=== PATIENT | male | born 1955 | race Two or more races ===

== ENCOUNTER → 2020-06-16 | Outpatient (CLI) | payer BC, MEDICARE ==
[~2020-06-16] MED LIST: GADOBENATE DIMEGLUMINE 529 MG/ML 10ML IV ONE
== END | disposition home or self-care (01) ==
LOC: NM 07:32
PROVIDERS: ATTEND Urology
DX: C61 Malignant neoplasm of prostate (principal); I77.810 Thoracic aortic ectasia
CPT/HCPCS: 71046; 72197; 78306; A9503; A9577

== ENCOUNTER 2021-11-08 18:42 | Emergency (ER) | payer BC, OTHER ==
[~2021-11-08] VITALS: Ht 177.8 cm; Wt 82.0 kg
[2021-11-08 20:50] VITALS: BP 158/93
[2021-11-08] MEDS ORDERED: NA PHOS,M-B/NA PHOS,DI-BA ENEMA 118ML PR ONE (21:00)
[2021-11-08 21:19] LABS: CLARITY URINE CLEAR (CLEAR); COLOR URINE YELLOW (YELLOW); KETONES URINE NEGATIVE (NEGATIVE); LEUKOCYTE ESTERASE URINE NEGATIVE (NEGATIVE); NITRITE URINE NEGATIVE (NEGATIVE); OCCULT BLOOD URINE 1+ (NEGATIVE); PH URINE 5.5 (4.5-8.0); PROTEIN URINE 1+ (NEGATIVE); SPECIFIC GRAVITY URINE 1.018 (1.005-1.030); UROBILINOGEN URINE 0.2 E.U./dL (0.2-1.0)
== END 2021-11-08 21:41 | disposition left against medical advice (07) ==
LOC: ER 18:42
DX: K59.00 Constipation, unspecified (principal); R30.0 Dysuria
CPT/HCPCS: 81003; 99283

== ENCOUNTER 2021-12-04 11:29 | Emergency (ER) | payer OTHER ==
[~2021-12-04] VITALS: Ht 182.9 cm; Wt 84.0 kg
[2021-12-04 11:51] VITALS: BP 188/109
[2021-12-04 14:44] LABS: CLARITY URINE CLEAR (CLEAR); COLOR URINE YELLOW (YELLOW); KETONES URINE NEGATIVE (NEGATIVE); LEUKOCYTE ESTERASE URINE NEGATIVE (NEGATIVE); NITRITE URINE NEGATIVE (NEGATIVE); OCCULT BLOOD URINE 1+ (NEGATIVE); PROTEIN URINE NEGATIVE (NEGATIVE); SPECIFIC GRAVITY URINE 1.006 (1.005-1.030); UROBILINOGEN URINE 0.2 E.U./dL (0.2-1.0)
[2021-12-04] MEDS ORDERED: BISA10SU62 RC (15:36)
== END 2021-12-04 16:07 | disposition home or self-care (01) ==
LOC: ER 11:38
DX: K59.09 Other constipation (principal); I10 Essential (primary) hypertension; R35.0 Frequency of micturition
CPT/HCPCS: 74018; 81003; 82962; 99284